=== PATIENT | male | born 1980 | race Two or more races ===

== ENCOUNTER 2023-12-30 08:57 | Inpatient (IN) | payer OTHER ==
[~2023-12-30] VITALS: Ht 175.3 cm; Wt 77.8 kg
[2023-12-30] MEDS ORDERED: LEVO25TA9 PO (09:27)
[2023-12-30] MEDS ORDERED: DOXY-354 PO (09:27)
[2023-12-30] MEDS: BACITRACIN 28 GM OINTMENT TP ONE (10:19)
[2023-12-30] MEDS: PERTUSS(ACELL),DIPH,TET/PF 0.5 ML SYRINGE [ADULT] IM. ONE (10:20)
[2023-12-30 11:35] LABS: BASOPHILS % (AUTO) 0.7 % (0.0-2.0); EOSINOPHILS % (AUTO) 1.2 % (1.0-6.0); HEMATOCRIT 44.1 % (41-53); HEMOGLOBIN 15.2 g/dL (13.5-17.5); LYMPHOCYTES # (AUTO) 1.5 K/uL (1.0-4.8); LYMPHOCYTES % (AUTO) 16.2 % (22.0-44.0); MEAN CORPUSCULAR HEMOGLOBIN 33.2 pg (26.0-34.0); MEAN CORPUSCULAR HGB CONC 34.4 G/dL (31.0-37.0); MEAN CORPUSCULAR VOLUME 96 fL (80-100); MONOCYTES # (AUTO) 0.7 K/uL (0.1-1.0); MONOCYTES % (AUTO) 7.6 % (2.0-9.0); NEUTROPHILS # (AUTO) 6.6 K/uL (1.8-7.7); NEUTROPHILS % (AUTO) 74.3 % (40.0-70.0); PLATELET COUNT (AUTO) 199 K/uL (150-450); RED BLOOD CELL COUNT(AUTO) 4.58 MIL/uL (4.50-5.90); RED CELL DISTRIBUTION WIDTH 13.5 % (11.5-14.5); WHITE BLOOD COUNT (AUTO) 8.9 K/uL (4.5-11.0)
[2023-12-30] MEDS: CLINDAMYCIN 600 MG/D5% WATER 50 ML IV ONE (11:39)
[2023-12-30 12:05] LABS: ANION GAP 9 mmol/L (8-16); CALCIUM, TOTAL 9.1 mg/dL (8.8-10.5); CARBON DIOXIDE 27 mmol/L (22-29); CHLORIDE 103 mmol/L (98-107); CREATININE 0.91 mg/dL (0.60-1.30); GLOMERULAR FILTR. RATE CALC > 60 mL/min (>60); GLUCOSE,RANDOM 93 mg/dL (70-110); POTASSIUM 4.3 mmol/L (3.5-5.1); SODIUM SERUM 139 mmol/L (136-145); UREA NITROGEN, BLOOD 9 mg/dL (7-18)
[2023-12-30 12:12] LABS: ALANINE AMINOTRANSFERASE 21 U/L (12-78); ALBUMIN 3.8 g/dL (3.4-5.0); ALKALINE PHOSPHATASE 96 U/L (46-116); ASPARTATE AMINOTRANSFERASE 24 U/L (15-37); BILIRUBIN,TOTAL 0.9 mg/dL (0.1-1.0); TOTAL PROTEIN, SERUM 7.7 g/dL (6.4-8.2)
[2023-12-30 17:20] VITALS: BP 124/84; PULSE 73; RESP 18; TEMP 98.4
[2023-12-30] MEDS ORDERED: 0.9% SODIUM CHLORIDE 10 ML SYRINGE IVP PRN (18:15)
[2023-12-30] MEDS ORDERED: ONDANSETRON HCL 4 MG/2 ML VIAL IVP PRN (18:15)
[2023-12-30] MEDS: LEVOTHYROXINE SODIUM 25 MCG TABLET PO ONE (18:27)
[2023-12-30] MEDS: DOCUSATE SODIUM 100 MG CAPSULE PO SCH (20:00)
[2023-12-30] MEDS: DOXYCYCLINE HYCLATE 100 MG in DEXTROSE 5%-WATER 100 ML IV SCH (20:00)
[2023-12-30] MEDS ORDERED: SODIUM CHLORIDE 0.9% 500 ML IV ONE (20:04)
[2023-12-30 20:22] VITALS: BP 119/76; PULSE 77; RESP 18; TEMP 98.5
[2023-12-31] MEDS: OxyCODONE HCL/ACETAMINOPHEN 5-325 MG TABLET PO PRN ×2 (00:09→08:37)
[2023-12-31 04:29] VITALS: BP 104/63; PULSE 67; RESP 18; TEMP 98.3
[2023-12-31] MEDS: LEVOTHYROXINE SODIUM 25 MCG TABLET PO SCH (06:28)
[2023-12-31 07:33] LABS: ANION GAP 10 mmol/L (8-16); CALCIUM, TOTAL 8.9 mg/dL (8.8-10.5); CARBON DIOXIDE 27 mmol/L (22-29); CHLORIDE 103 mmol/L (98-107); CREATININE 0.99 mg/dL (0.60-1.30); GLOMERULAR FILTR. RATE CALC > 60 mL/min (>60); GLUCOSE,RANDOM 94 mg/dL (70-110); POTASSIUM 4.1 mmol/L (3.5-5.1); SODIUM SERUM 140 mmol/L (136-145); UREA NITROGEN, BLOOD 14 mg/dL (7-18)
[2023-12-31 07:39] LABS: BASOPHILS % (AUTO) 0.6 % (0.0-2.0); HEMATOCRIT 42.6 % (41-53); HEMOGLOBIN 14.7 g/dL (13.5-17.5); LYMPHOCYTES # (AUTO) 2.1 K/uL (1.0-4.8); LYMPHOCYTES % (AUTO) 25.4 % (22.0-44.0); MEAN CORPUSCULAR HEMOGLOBIN 33.3 pg (26.0-34.0); MEAN CORPUSCULAR HGB CONC 34.5 G/dL (31.0-37.0); MEAN CORPUSCULAR VOLUME 97 fL (80-100); MONOCYTES # (AUTO) 0.8 K/uL (0.1-1.0); MONOCYTES % (AUTO) 9.3 % (2.0-9.0); NEUTROPHILS # (AUTO) 5.1 K/uL (1.8-7.7); NEUTROPHILS % (AUTO) 62.7 % (40.0-70.0); PLATELET COUNT (AUTO) 197 K/uL (150-450); RED BLOOD CELL COUNT(AUTO) 4.42 MIL/uL (4.50-5.90); RED CELL DISTRIBUTION WIDTH 13.4 % (11.5-14.5); WHITE BLOOD COUNT (AUTO) 8.1 K/uL (4.5-11.0)
[2023-12-31] MEDS: PANTOPRAZOLE SODIUM 40 MG/VIAL IVP SCH (08:00)
[2023-12-31] MEDS: SILVER SULFADIAZINE 1% 25 GM CREAM TP SCH (08:22)
[2023-12-31 08:26] VITALS: BP 128/74; PULSE 68; RESP 18; TEMP 98
[2023-12-31 19:28] VITALS: BP 117/74; PULSE 75; RESP 20; TEMP 97.5
[2024-01-01 04:31] VITALS: BP 115/82; PULSE 70; RESP 18; TEMP 97.7
[2024-01-01 08:27] VITALS: BP 123/86; PULSE 75; RESP 18; TEMP 98.2
[2024-01-01 20:27] VITALS: BP 131/78; PULSE 77; RESP 18; TEMP 98.2
[2024-01-02 05:21] VITALS: BP 114/84; PULSE 63; RESP 19; TEMP 98
[2024-01-02 08:14] VITALS: BP 114/79; PULSE 72; RESP 19; TEMP 98.2
[2024-01-02] MEDS ORDERED: SODIUM CHLORIDE 0.9% 500 ML IV ONE (08:42)
[2024-01-02 20:25] VITALS: BP 126/86; PULSE 78; RESP 18; TEMP 98.3
[2024-01-03 08:20] VITALS: BP 114/78; PULSE 75; RESP 19; TEMP 98.1
[2024-01-03 12:09] LABS: BASOPHILS % (AUTO) 0.8 % (0.0-2.0); CARBON DIOXIDE 26 mmol/L (22-29); CHLORIDE 104 mmol/L (98-107); EOSINOPHILS % (AUTO) 2.2 % (1.0-6.0); HEMATOCRIT 44.3 % (41-53); HEMOGLOBIN 15.4 g/dL (13.5-17.5); LYMPHOCYTES # (AUTO) 2.1 K/uL (1.0-4.8); LYMPHOCYTES % (AUTO) 28.9 % (22.0-44.0); MEAN CORPUSCULAR HEMOGLOBIN 33.1 pg (26.0-34.0); MEAN CORPUSCULAR HGB CONC 34.8 G/dL (31.0-37.0); MEAN CORPUSCULAR VOLUME 95 fL (80-100); MONOCYTES # (AUTO) 0.5 K/uL (0.1-1.0); MONOCYTES % (AUTO) 7.7 % (2.0-9.0); NEUTROPHILS # (AUTO) 4.3 K/uL (1.8-7.7); NEUTROPHILS % (AUTO) 60.4 % (40.0-70.0); PLATELET COUNT (AUTO) 236 K/uL (150-450); RED BLOOD CELL COUNT(AUTO) 4.66 MIL/uL (4.50-5.90); RED CELL DISTRIBUTION WIDTH 13.3 % (11.5-14.5); SODIUM SERUM 138 mmol/L (136-145); WHITE BLOOD COUNT (AUTO) 7.2 K/uL (4.5-11.0)
[2024-01-03 12:10] LABS: ANION GAP 8 mmol/L (8-16); CREATININE 0.78 mg/dL (0.60-1.30); GLOMERULAR FILTR. RATE CALC > 60 mL/min (>60); GLUCOSE,RANDOM 99 mg/dL (70-110); UREA NITROGEN, BLOOD 14 mg/dL (7-18)
[2024-01-03 12:15] LABS: ALANINE AMINOTRANSFERASE 22 U/L (12-78); ALBUMIN 3.5 g/dL (3.4-5.0); ALKALINE PHOSPHATASE 92 U/L (46-116); ASPARTATE AMINOTRANSFERASE 22 U/L (15-37); BILIRUBIN,TOTAL 0.7 mg/dL (0.1-1.0); TOTAL PROTEIN, SERUM 7.5 g/dL (6.4-8.2)
[2024-01-03 20:33] VITALS: BP 125/81; PULSE 76; RESP 20; TEMP 98.5
[2024-01-04 04:18] VITALS: BP 107/72; PULSE 80; RESP 20; TEMP 97.6
[2024-01-04 09:10] VITALS: BP 104/71; PULSE 71; RESP 20; TEMP 98.1
[2024-01-04] MEDS: DiphenhydrAMINE HCL 25 MG CAPSULE PO ONE (14:24)
[2024-01-04] MEDS: PredniSONE 20 MG TABLET PO ONE (14:24)
[2024-01-04] MEDS ORDERED: SILV20CR11 TP (14:59)
== END 2024-01-04 17:35 | DRG 603 ==
LOC: EMS 09:01 → 6S 15:37
PROVIDERS: ADMIT Internal Medicine; ATTEND Internal Medicine
DX: L03.115 Cellulitis of right lower limb (principal); T25.211A Burn of second degree of right ankle, initial encounter; E03.9 Hypothyroidism, unspecified; X58.XXXA Exposure to other specified factors, initial encounter; T23.171A Burn of first degree of right wrist, initial encounter; Z88.0 Allergy status to penicillin
CPT/HCPCS: 80048; 80053; 85025; 87040; 87070; 87205; 90715; 99285; C9113; J3490; J7040; J7060